=== PATIENT | male | born 1950 | race Caucasian/White ===

== ENCOUNTER 2020-07-11 23:25 | Inpatient (IN) | payer MEDICARE, MEDICAID ==
[2020-07-11 23:43] VITALS: BMI 27.8
[2020-07-12] MEDS ORDERED: Acetaminophen 325 MG TAB PO PRN (01:19)
--- NOTE | 2020-07-12 01:19 | PDOC.HHP ---
Hospitalist HPI Generalized swelling History of Present Illness: This is a 69-year-old male patient with a history of liver cirrhosis and hypertension who was transferred from [facility] on account of worsening generalized swelling for the past week. Patient notes that for the past week he has been noticing generalized swelling of his lower extremities and his abdomen. This has gradually worsened to the extent he has difficulty breathing, difficulty walking and painful swollen scrotum. He also notes intermittent wheezing shortness of breath and cough with scanty sputum production. He is a chronic smoker but however has not been formally diagnosed of COPD. He denies hemoptysis, fevers, dysuria or frequency. Also denies diarrhea constipation. He however notes having generalized bodily pains especially extending from his abdomen to his lower extremities. On presentation at [facility] vitals were BP 143/73, respiratory rate 16, pulse 98, temperature 99.3 and saturating at 98 on room air. His labs showed WBC of 7.1, hemoglobin 11.8, platelets 118. Also had sodium of 133, bicarb 20, creatinine 1.47 from a baseline of 1.75 about 7 months ago. AST was 99, ALT 24 and ALP 187. Ammonia level is 85. BNP slightly elevated to 10. He was started on Lasix and spironolactone however only received Lasix prior to arrival. Allergies/Adverse Reactions: Allergy/AdvReac Type Severity Reaction Status Date / Time No Known Drug Allergies Allergy Verified 07/12/20 01:01 Home Medications: Medication Instructions Recorded Confirmed Type Amlodipine Besylate [amLODIPine 10 mg PO DAILY 07/12/20 07/12/20 History Besylate] Past History: PMHx: Hypertension, liver cirrhosis PSHx: None FHx: None of significance Social: Lives alone, every day smoker. Previous alcohol use however stopped. No illicit drug use Hospitalist HPI ROS Constitutional: reports: weakness, malaise. denies: fever, chills, sweats Respiratory: reports: cough (Scanty sputum production, no hemoptysis), shortness of breath, SOB with excertion, wheezing Cardiovascular: reports: edema. denies: chest pain, palpitations, orthopnea, paroxysmal noc. dyspnea Gastrointestinal: reports: abdominal pain. denies: nausea, vomiting, diarrhea Genitourinary: denies: dysuria, frequency, incontinence Musculoskeletal: reports: leg pain, foot pain Neurological: denies: weakness, numbness, incoordination, change in speech All other systems reviewed; all pertinent +/- noted in HPI/Subj Hospitalist Exam Vitals: Vital Signs (12 hours) Temp Pulse Resp BP Pulse Ox 07/12/20 00:48 92 16 93 L 07/11/20 23:26 98.4 F 93 18 110/54 L 93 L Weight Weight 211 lb 8 oz General Appearance: awake alert, ill appearing General - other findings: In mild distress Eye: PERRL, anicteric sclera ENT: normocephalic atraumatic Heart: RRR, no murmur, no gallops, no rubs Respiratory - other findings: Bilateral generalized wheezing. Reduced air entry bilateral Gastrointestinal: soft, normal bowel sounds, no palpable masses, distended (Grossly) Extremities: no cyanosis, no clubbing, 2+ LE edema Neurological: cranial nerve grossly intact, no weakness, no focal deficits Psychiatric: normal affect, normal behavior, A&O x 3 Hospitalist H&P A/P Plan: This is a 69-year-old male patient with a history of liver cirrhosis and hypertension presenting transferred from [facility] on account of worsening edema and shortness of breath. This is concerning for decompensated liver cirrhosis and possible acute COPD exacerbation. Anasarca Secondary to alcoholic liver cirrhosis Started on Lasix and spironolactonewe will continue GI consult. Decompensated liver cirrhosis Ascitesparacentesis with CS cytology culture and albumin/protein Started on antibiotics although SBP not highly suspected however covered from antibiotics for COPD exacerbation Follow-up on labs Right upper quadrant ultrasound in a.m. GI consult in a.m. COPD exacerbation No formal diagnosis of COPD however patient wheezing and chronic smoker. DuoNebs as needed/scheduled Solu-Medrol Antibiotics on azithromycin/prednisone Atypical pneumonia Covered on azithromycin. Hypertension BP stable Resume home medications once verified. Tobacco abuse We will need counseling for sedation given possible COPD DVT prophylaxisLovenox CODE STATUSDNRthis was discussed with patient
[2020-07-12] MEDS: cefTRIAXone\\ROCEPHIN 1 GM in Sodium Chloride 0.9% 100 ML IVPB SCH (05:15)
[2020-07-12] MEDS: Azithromycin 500 MG in Sodium Chloride 0.9% 250 ML 250 ML IVPB SCH (05:39)
[2020-07-12 06:42] LABS: Anion Gap 9 mmol/L (10-20); BUN (Urea Nitrogen) 17 mg/dL (8.4-25.7); Calc. Creatinine Clearance 70 mL/min (70-130); Calcium 7.4 mg/dL (7.8-10.44); Carbon Dioxide 24 mmol/L (23-31); Chloride 105 mmol/L (98-107); Glucose 116 mg/dL (80-115); Potassium 3.4 mmol/L (3.5-5.1); Sodium 135 mmol/L (136-145)
[2020-07-12 06:45] LABS: #Basophils 0.1 thou/uL (0.0-0.2); #Monocytes 0.6 thou/uL (0.11-0.59); #Neutrophils 2.8 thou/uL (1.40-6.50); %Basophils 0.9 % (0.0-1.0); %Eosinophils 18.6 % (0.0-10.0); %Lymphocytes 18.3 % (21.0-51.0); %Monocytes 10.7 % (0.0-10.0); %Neutrophils 51.5 % (42.0-75.0); Hemoglobin 10.4 g/dL (14.0-18.0); Mean Corpuscular HGB CONC 35.9 g/dL (32.0-36.0); Mean Corpuscular Hemoglobin 36.7 pg (27.0-31.0); Mean Platelet Volume 6.9 fL (7.4-10.4); Platelet Count 101 thou/uL (130-400); RBC Distribution Width 14.7 % (11.5-14.5); Red Blood Cell (RBC) Count 2.84 mill/uL (4.70-6.10); White Blood Cell (WBC) Count 5.5 thou/uL (4.8-10.8)
[2020-07-12] MEDS ORDERED: Lidocaine 1% PF 5 ML VIAL ONE (07:37)
[2020-07-12] MEDS ORDERED: Sodium Bicarbonate 2.5 MEQ/5 ML VIAL ONE (07:37)
--- NOTE | 2020-07-12 07:41 | ULT ---
RIGHT UPPER QUADRANT ULTRASOUND: DATE: 07/12/2020 COMPARISON: None. HISTORY: Decompensated hepatic cirrhosis. TECHNIQUE: Multiplanar grayscale sonographic imaging of the right upper quadrant provided. FINDINGS: The pancreas appears grossly unremarkable, partially obscured by bowel gas. The label pinker demonstrates a 9 x 6 mm echogenic focus inseparable from the wall of the main portal vein. This is suspicious for an area of nonocclusive portal vein thrombosis. This could be optimally assessed with follow-up postcontrast CT or MRI. The hepatic parenchyma is heterogeneous and echogenic with a peripheral irregular hepatic contour con sistent with the provided history of cirrhosis. There is significant ascites adjacent to the liver. The right kidney measures 10.6 cm in craniocaudal dimension and demonstrates no stone, hydronephrosis , or mass lesion. The common bile duct is normal in caliber, measuring 4 mm. There is diffuse nonspecific wall thickening of the gallbladder with no gallstones seen. This is like ly on the basis of hepatocellular disease. There is small volume ascites within the left lower quadrant and there is significant ascites within the right lower quadrant. The spleen is enlarged sharad suring 15.5 cm. The label pinker reports a negative Walters's sign. IMPRESSION: 1. Cirrhotic configuration of the liver with significant ascites. Splenomegaly noted, combination of findings consistent with portal hypertension 2. Hypoechoic nodule within the region of the left portal vein suspicious for nonocclusive thrombus. 3. Gallbladder wall thickening, likely related to the patient's history of hepatocellular disease gi tanya lack of gallstones and a negative Walters's sign. Gallbladder wall is normal. Transcribed Date/Time: 07/12/2020 8:07 AM
--- NOTE | 2020-07-12 07:49 | RAD ---
Portable frontal chest radiograph: 07/12/2020 COMPARISON: 11/10/2019 HISTORY: Short of breath FINDINGS: There is interstitial opacity in the left lung with a perihilar/basilar predominance, not s ignificantly changed. There is increased density in the right hilar region with partial opacification of the right lung base suggesting combination of nonspecific pleural and parenchymal op acity. Blunting of the costophrenic angle on the right with pleural thickening extending to the right lung apex suggests a right pleural effusion, moderate in volume. The extension to the apex sugg est that this pleural effusion is possibly loculated or complex. This would be best assessed with follow-up chest CT. Rounded configuration of opacity within the right base is noted, which could sign brandon a degree of rounded atelectasis as seen on prior chest CT performed 03/13/2020. IMPRESSION: Nonspecific pleural and parenchymal opacity on the right as detailed above. Findings are similar when compared to junior assistant manager radiograph from chest CT performed 03/13/2020 and thus, pleural and parenchymal opacity on the right likely represents a combination of chronic complex pleural effusion and rounded atelectasis within the right base. Transcribed Date/Time: 07/12/2020 7:58 AM
[2020-07-12] MEDS ORDERED: Spironolactone 100 MG TAB PO SCH ×2 (08:00→12:15)
--- NOTE | 2020-07-12 08:27 | ULT ---
Sonographic guided paracentesis HISTORY: Symptomatic ascites. FINDINGS: After explaining the procedure and answering all questions, sonographic survey showed a mod erate amount of free fluid within the abdomen. Sterile technique, buffered local anesthesia, sonographic guidance, and a right lateral approach were used to carefully advance a 19-gauge Yueh needle and catheter into the free fluid. Catheter was left to drain a total volume of 2.7 L cloudy yellow liquid. Catheter was removed with minimal fluid r emaining. Patient tolerated procedure well and was returned in improved condition. IMPRESSION : Technically successful sonographic guided paracentesis 2.7 L.
[2020-07-12] MEDS ORDERED: Furosemide 40 MG/4 ML VIAL SLOW IVP SCH (09:00)
[2020-07-12] MEDS ORDERED: Enoxaparin Sodium 40 MG/0.4 ML SYRINGE SC SCH (09:00)
[2020-07-12] MEDS ORDERED: Furosemide 40 MG TAB PO SCH (09:00)
[2020-07-12 09:34] LABS: SARS-CoV-2 PCR by NAA Not Detected (NotDetected)
[2020-07-12] MEDS ORDERED: methylPREDNISolone Sod Succ/PF 125 MG/2 ML VIAL IVP SCH (09:45)
[2020-07-12] MEDS: methylPREDNISolone Sod Succ 40 MG VIAL IVP SCH ×2 (14:13→20:26)
--- NOTE | 2020-07-12 15:24 | CON ---
DATE OF CONSULTATION: 07/12/2020 HISTORY OF PRESENT ILLNESS: The patient is a 69-year-old male who was in his normal state of health until the last few days or weeks when he developed swelling of his lower extremities and scrotum, causing discomfort. At that point, he could not walk. He also complains of difficulty breathing. He reports he has been told he had cirrhosis several years ago. He was treated for hepatitis C in the past with pills. He is not sure of the treating physician. He said the pills took care of his hepatitis C. He has been on no diuretics in the past. He underwent a paracentesis here in the hospital. MEDICATIONS: Home medications include amlodipine 10 mg p.o. daily. Here in the hospital, he is on: 1. DuoNeb nebulized treatments. 2. Azithromycin 500 mg q.24 h. 3. Ceftriaxone 1 g q.24 h. 4. Lovenox 40 mg subcutaneous daily. 5. Lasix 40 mg IV daily. 6. Solu-Medrol 40 mg IV q.8 h. ALLERGIES: NO KNOWN ALLERGIES. SOCIAL HISTORY: He is an active smoker. He says he does not drink alcohol and has not for 40 years. FAMILY HISTORY: Negative for GI or liver disease. REVIEW OF SYSTEMS: Negative except for above. PHYSICAL EXAMINATION: VITAL SIGNS: Temperature 97.9, pulse 89, respiratory rate 20, blood pressure 121/69. HEENT: Poor dentition. NECK: Supple. CHEST: Bilateral wheezes. ABDOMEN: Protuberant, somewhat tense. No organomegaly or masses appreciable. He has caput medusa. GENITOURINARY: He has scrotal edema. EXTREMITIES: Bilateral lower extremity edema. LABORATORY DATA: White blood cell count 5.5, hemoglobin 10.4, hematocrit 29.0, and platelet counts 101. PT is 13.9 with an INR of 1.1. Chemistries show sodium of 133, CO2 of 20, creatinine 1.47, total bilirubin 3.7, AST of 99, alkaline phosphatase of 187, and albumin 2.5. Hepatitis A antibody from 2019 was positive and hepatitis C RNA is positive from 2019. Paracentesis performed earlier today with 2.7 L of cloudy yellow fluid removed. Abdominal ultrasound showed a cirrhotic configuration of the liver with significant ascites, splenomegaly noted. There is a hypoechoic nodule within the region of the left portal vein, suspicious for nonocclusive thrombus. Gallbladder wall thickening likely related to the patient's history of hepatocellular disease. No gallstones. ASSESSMENT: 1. Decompensated cirrhosis with ascites and scrotal and lower extremity edema; the exact etiology of his decompensation is unknown. He denies any alcohol intake. However, his AST is elevated with normal ALT, making slight alcoholic hepatitis suspicious. He has atypical pneumonia and also chronic obstructive pulmonary disease exacerbation. This could be contributing somewhat to his decompensation. He has a history of hepatitis C, which was treated in the past and this would explain his cirrhosis. 2. Nonocclusive portal vein thrombus. 3. Ascites. 4. Scrotal edema. 5. Lower extremity edema. 6. Chronic obstructive pulmonary disease exacerbation. 7. Atypical pneumonia. RECOMMENDATIONS: 1. Alpha fetoprotein. 2. Await fluid results. 3. May need a repeat paracentesis with more fluid if he remains symptomatic. 4. Add spironolactone to his regimen. 5. Treat pneumonia and COPD exacerbation. 6. We will follow with you. Job ID: [id number]
--- NOTE | 2020-07-12 17:53 | PDOC.HOSPP ---
- Subjective Subjective: Patient was seen examined at bedside. Patient just returned from paracentesis, had about 2.5 L removed. Patient still edematous, he also had audible wheezing on exam. He still short of breath. - Objective Vital Signs & Weight: Vital Signs (12 hours) Temp Pulse Resp BP BP Pulse Ox 07/12/20 16:39 98.0 F 88 16 118/69 95 07/12/20 12:00 98.2 F 95 20 138/77 95 07/12/20 08:00 97.9 F 89 20 121/69 96 07/12/20 06:14 88 93 L Weight Admit Weight 211 lb 8 oz Weight 211 lb 8 oz I&O: 07/11/20 07/12/20 07/13/20 06:59 06:59 06:59 Intake Total 240 Balance 240 Result Diagrams: 07/12/20 06:11 07/12/20 06:11 Radiology Reviewed by me: Yes EKG Reviewed by me: Yes Hospitalist ROS - Medication Medications: Active Medications Generic Name Dose Route Start Last Admin Trade Name Freq PRN Reason Stop Dose Admin Albuterol/Ipratropium 3 ml 07/12/20 13:00 07/12/20 13:47 Ipratropium/Albuterol Sulfate 3 Ml Neb NEB Not Given [id number] CLEMENCIA Furosemide 40 mg 07/12/20 09:00 07/12/20 08:31 Furosemide 40 Mg/4 Ml Vial SLOW IVP Not Given DAILY CLEMENCIA Azithromycin 500 mg/ Sodium 250 mls @ 250 mls/hr 07/12/20 05:00 07/12/20 05:39 Chloride IVPB 250 mls Q24HR CLEMENCIA Administration Ceftriaxone Sodium 1 gm/ 100 mls @ 200 mls/hr 07/12/20 05:00 07/12/20 05:15 Sodium Chloride IVPB 100 mls Q24HR CLEMENCIA Administration Methylprednisolone Sodium Succinate 40 mg 07/12/20 14:00 07/12/20 14:13 Methylprednisolone Sod Succ 40 Mg Vial IVP 40 mg Q8HR CLEMENCIA Administration Hospitalist Exam Vitals: Vital Signs (12 hours) Temp Pulse Resp BP BP Pulse Ox 07/12/20 16:39 98.0 F 88 16 118/69 95 07/12/20 12:00 98.2 F 95 20 138/77 95 07/12/20 08:00 97.9 F 89 20 121/69 96 07/12/20 06:14 88 93 L Weight Admit Weight 211 lb 8 oz Weight 211 lb 8 oz General Appearance: NAD Eye: PERRL ENT: normocephalic atraumatic Neck: supple Heart: RRR Respiratory: wheezes Gastrointestinal: soft Extremities: no cyanosis, 2+ LE edema Skin: normal turgor Neurological: cranial nerve grossly intact Musculoskeletal: normal tone Psychiatric: normal affect, normal behavior, A&O x 3 Hosp A/P (1) COPD exacerbation Code(s): J44.1 - CHRONIC OBSTRUCTIVE PULMONARY DISEASE W (ACUTE) EXACERBATION Status: Acute (2) Liver cirrhosis Code(s): K74.60 - UNSPECIFIED CIRRHOSIS OF LIVER Status: Acute (3) Hepatitis C Code(s): B19.20 - UNSPECIFIED VIRAL HEPATITIS C WITHOUT HEPATIC COMA Status: Acute (4) Hypertension Code(s): I10 - ESSENTIAL (PRIMARY) HYPERTENSION Status: Acute (5) Ascites Code(s): R18.8 - OTHER ASCITES Status: Acute (6) Portal vein thrombosis Code(s): I81 - PORTAL VEIN THROMBOSIS Status: Acute - Plan Patient is a 69 years old gentleman who has significant past medical history of hepatitis liver cirrhosis, COPD, hypertension, who was transferred from outside facility for worsening generalized swelling/edema. Patient was admitted for decompensated liver cirrhosis, and COPD exacerbation. Decompensated liver cirrhosis --Continue IV Lasix, spironolactone. Follow renal function --Status post paracentesis, 2.5 L removed on 07/12/20 --GI input appreciated Ascites/anasarca --Management as above. May need to rpt paracentesis COPD with exacerbation --Start IV steroid, scheduled breathing treatments, mucolytics. Continue empiric antibiotic with Rocephin/azithromycin for possible pneumonia Portal vein thrombosis, nonocclusive --We will change his Lovenox to therapeutic dose Hypertension, stable --Blood pressure stable, on the low side. We will continue with IV diuretic, spironolactone antibiotic. Hold off on resuming his Norvasc for now Tobacco dependent disorder --Counseled DVT prophylaxisLovenox CODE STATUSDNRthis was discussed with patient
[2020-07-12] MEDS: Enoxaparin Sodium 100 MG/ML SYRINGE SC SCH (20:24)
[2020-07-12] MEDS: guaiFENesin/DM ER PO SCH (20:26)
[2020-07-12] MEDS ORDERED: FLU VACC QS2020-21(65YR UP)/PF 240 MCG/0.7 ML SYRINGE IM ONE (21:00)
[2020-07-13] MEDS: cefTRIAXone\\ROCEPHIN 1 GM in Sodium Chloride 0.9% 100 ML IVPB SCH (04:12)
[2020-07-13] MEDS: methylPREDNISolone Sod Succ 40 MG VIAL IVP SCH ×2 (05:16→13:51)
[2020-07-13] MEDS: Azithromycin 500 MG in Sodium Chloride 0.9% 250 ML 250 ML IVPB SCH (05:17)
[2020-07-13 05:37] LABS: #Lymphocytes 0.6 thou/uL (1.20-3.40); #Monocytes 0.3 thou/uL (0.11-0.59); %Basophils 0.1 % (0.0-1.0); %Eosinophils 0.3 % (0.0-10.0); %Lymphocytes 6.2 % (21.0-51.0); %Neutrophils 90.4 % (42.0-75.0); Hemoglobin 10.3 g/dL (14.0-18.0); Mean Corpuscular HGB CONC 35.5 g/dL (32.0-36.0); Mean Corpuscular Hemoglobin 36.1 pg (27.0-31.0); Mean Platelet Volume 7.4 fL (7.4-10.4); Platelet Count 98 thou/uL (130-400); RBC Distribution Width 14.4 % (11.5-14.5); Red Blood Cell (RBC) Count 2.85 mill/uL (4.70-6.10); White Blood Cell (WBC) Count 8.9 thou/uL (4.8-10.8)
[2020-07-13 05:57] LABS: ALT (SGPT) 21 U/L (8-55); AST (SGOT) 77 U/L (5-34); Albumin 2.2 g/dL (3.4-4.8); Alkaline Phosphatase 171 U/L (40-110); Anion Gap 11 mmol/L (10-20); BUN (Urea Nitrogen) 20 mg/dL (8.4-25.7); Bilirubin, Total 2.5 mg/dL (0.2-1.2); CRP (Inflammatory) 2.49 mg/dL (= or < 0.5); Calc. Creatinine Clearance 65 mL/min (70-130); Calcium 7.7 mg/dL (7.8-10.44); Carbon Dioxide 24 mmol/L (23-31); Chloride 102 mmol/L (98-107); Glucose 289 mg/dL (80-115); Magnesium 1.7 mg/dL (1.6-2.6); Potassium 3.6 mmol/L (3.5-5.1); Protein, Total 7.2 g/dL (5.8-8.1); Sodium 133 mmol/L (136-145)
[2020-07-13] MEDS: Enoxaparin Sodium 100 MG/ML SYRINGE SC SCH ×2 (08:11→21:41)
[2020-07-13] MEDS: guaiFENesin/DM ER PO SCH ×2 (08:11→21:41)
--- NOTE | 2020-07-13 09:54 | RAD ---
PA AND LATERAL VIEWS CHEST: Date: 07/13/2020 HISTORY: Follow-up pneumonia and pleural effusion. COMPARISON: Previous day. FINDINGS/IMPRESSION: The heart size is normal. Right-sided pleural parenchymal changes are again seen. No pneumothoraces a re identified on either side. The left lung is clear. POS: MZA
[2020-07-13] MEDS ORDERED: Iopamidol-370 76% 500 ML 1 ML ONE (10:32)
--- NOTE | 2020-07-13 11:06 | CT ---
CT OF THE ABDOMEN AND PELVIS WITH IV CONTRAST INDICATION: History of cirrhosis with elevated alpha-fetoprotein COMPARISON: CT the chest without contrast dated March 13, 2020 and a right upper quadrant ultrasound dated July 12, 2020 FINDINGS: ABDOMEN: Lung bases: There is a loculated right-sided pleural effusion with rounded atelectasis of the right l ower lobe which is stable to the comparison chest CT. Liver: There is cirrhotic morphology of the liver. There is an 8.5 cm irregular hypodense mass within segment 5 of the right hepatic lobe suspicious for underlying malignancy. The mass lesion is displacing the anterior division of the right portal vein laterally. There are focal filling defects within the distal right main portal vein extending into the anterior division of the right portal vein. There is also a partial occlusive intraluminal thrombus within the distal left main portal vein on image 21 of series 2. There are enlarged lymph nodes within the periportal and portacaval region. When the largest in the periportal region measures 1.3 cm on image 27 of series 2. There is r ecanalization of the umbilical vein. Gallbladder: Mild collateral wall thickening likely related to patient's cirrhosis. Pancreas: Normal. Adrenal glands: Normal. Spleen: Enlarged measuring 17.1 cm. Kidneys and ureters: There are bilateral renal cysts. The largest is seen exophytically off the super ior pole of the left kidney measuring 1.8 cm. There is prominence of the mid left ureter that extends to the level of the left renal pelvis without bhavin left-sided hydronephrosis. The right dong l collecting system is of normal caliber. Vasculature: There are moderate vascular calcifications seen involving the visualized vasculature. Lymph nodes:Enlarged lymph nodes in the periportal and portacaval regions. Free fluid in abdomen:There is [id number] scattered ascites. PELVIS: Small and large bowel: There is colonic diverticulosis. The small bowel is of normal caliber. The vis ualized stomach appears within normal limits. Appendix:The appendix projects into a right inguinal hernia within the right inguinal canal with exte nsive amount of fluid within the right inguinal hernia sac that protrudes into the superior aspect of the right scrotum. Bladder: Normal. Rectal and perirectal soft tissues:Normal. Reproductive structures: Normal. Free fluid in pelvis: There is [id number] free fluid in the pelvis. There is fluid extending in to a right inguinal hernia Lymphadenopathy pelvis: No lymphadenopathy is evident. Osseous structures: No acute osseous abnormality. No destructive osteolytic or osteoblastic lesion i s identified. There is scattered degenerative and osteoarthritic changes. Soft tissues:Mild anasarca IMPRESSION: 1. Cirrhosis with findings of portal hypertension. 2. Irregular hypodense mass within segment 5 of the right hepatic lobe suspicious for underlying hepa tic malignancy. Follow-up CT or MRI utilizing a liver mass protocol is recommended for additional characterization. 3. Partially occlusive intraluminal thrombi seen within the right and left main portal veins. 4. Uoeb-mr-[id number] ascites. There is a large right inguinal hernia containing fluid and the appendix . 5. Persistent small complicated right-sided pleural effusion with right lower lobe rounded atelectasi s. 6. Nonspecific mild dilatation of the mid left ureter may related to a nonobstructing stricture at th e level of the mid to distal left ureter. No bhavin left-sided hydronephrosis is evident. Bilateral renal cysts.
[2020-07-13] MEDS ORDERED: Furosemide 40 MG/4 ML VIAL SLOW IVP SCH (12:45)
[2020-07-13] MEDS: Furosemide 40 MG/4 ML VIAL SLOW IVP SCH (13:50)
--- NOTE | 2020-07-13 14:52 | PRG ---
DATE OF SERVICE: 07/13/2020 SUBJECTIVE: The patient is feeling the same as far as his abdominal distention and scrotal edema and lower extremity edema. However, he discusses wanting to go to the [facility]. I did discuss with him he has alpha fetoprotein and CT results indicating probable hepatoma. OBJECTIVE: VITAL SIGNS: Temperature 97.7, pulse 96, respiratory rate 16, blood pressure 133/71. CHEST: Show bilateral wheezes. CARDIOVASCULAR: Regular rate and rhythm. ABDOMEN: Distended, tympanitic with a positive fluid wave. : Shows scrotal edema. EXTREMITIES: Show bilateral edema. LABORATORY DATA: Shows sodium 133, creatinine 1.50, total bilirubin 2.5, AST 77. Alpha fetoprotein is 77,885. IMAGING STUDIES: CT abdomen and pelvis shows liver to be cirrhotic. There is 8.5 cm irregular hypodense mass within segment 5 in the right hepatic lobe suspicious for underlying malignancy. The mass lesion of the right portal vein laterally. There were focal filling defects within the distal right main portal vein extending into the anterior division of the right portal vein. There is also partial occlusive intraluminal thrombus within the distal main portal vein and enlarged lymph nodes within the periportal and portacaval region. ASSESSMENT: 1. 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 2. Ascites. 3. Scrotal edema. 4. Chronic obstructive pulmonary disease. 5. Renal insufficiency. RECOMMENDATIONS: 1. We will consider holding diuretics as the patient has developed some renal insufficiency and treat his ascites with paracentesis p.r.n. 2. Oncology opinion. 3. This is unlikely to be resected. He is not a candidate for liver transplantation. Local treatments such as radiofrequency ablation and typically not considered tumors over 6 cm in size. Whenever treatment is decided, he will need to be undertaken in a tertiary center. Job ID: [id number]
--- NOTE | 2020-07-13 15:26 | PDOC.HOSPP ---
- Subjective Encounter Date: 07/13/20 Encounter Time: 12:10 Subjective: Patient seen this morning. He is quite decompensated. Going mild respiratory distress. Abdomen is distended. Patient lives alone. His CT report pending. Related report reviewed; discussed with Dr. Garza; also discussed with the rock dust sprayer this morning. - Objective Vital Signs & Weight: Vital Signs (12 hours) Temp Pulse Resp BP Pulse Ox 07/13/20 09:12 96 07/13/20 08:02 96 16 96 07/13/20 07:35 97.7 F 89 20 133/71 96 07/13/20 05:37 97.5 F L 94 20 123/75 96 Weight Admit Weight 211 lb 8 oz Weight 211 lb 8 oz I&O: 07/12/20 07/13/20 07/14/20 06:59 06:59 06:59 Intake Total 2030 Output Total 1700 Balance 330 Result Diagrams: 07/13/20 04:49 07/13/20 04:49 Hospitalist ROS - Medication Medications: Active Medications Generic Name Dose Route Start Last Admin Trade Name Freq PRN Reason Stop Dose Admin Albuterol/Ipratropium 3 ml 07/12/20 13:00 07/13/20 13:55 Ipratropium/Albuterol Sulfate 3 Ml Neb NEB Not Given [id number] CLEMENCIA Enoxaparin Sodium 100 mg 07/12/20 21:00 07/13/20 08:11 Enoxaparin Sodium 100 Mg/Ml Syringe SC 100 mg 0900,2100 CLEMENCIA Administration Furosemide 40 mg 07/13/20 14:00 07/13/20 13:50 Furosemide 40 Mg/4 Ml Vial SLOW IVP 40 mg 0600,1400 CLEMENCIA Administration Guaifenesin/Dextromethorphan 1 tab 07/12/20 21:00 07/13/20 08:11 Guaifenesin/Dm Er PO 1 tab Q12HR CLEMENCIA Administration Azithromycin 500 mg/ Sodium 250 mls @ 250 mls/hr 07/12/20 05:00 07/13/20 05:17 Chloride IVPB 250 mls Q24HR CLEMENCIA Administration Ceftriaxone Sodium 1 gm/ 100 mls @ 200 mls/hr 07/12/20 05:00 07/13/20 04:12 Sodium Chloride IVPB 100 mls Q24HR CLEMENCIA Administration Methylprednisolone Sodium Succinate 40 mg 07/12/20 14:00 07/13/20 13:51 Methylprednisolone Sod Succ 40 Mg Vial IVP 40 mg Q8HR CLEMENCIA Administration Sodium Chloride 10 ml 07/12/20 21:00 07/13/20 08:13 Flush - Normal Saline 10 Ml Syringe IVF 10 ml Q12HR CLEMENCIA Administration Hospitalist Exam Vitals: Vital Signs (12 hours) Temp Pulse Resp BP Pulse Ox 07/13/20 09:12 96 07/13/20 08:02 96 16 96 07/13/20 07:35 97.7 F 89 20 133/71 96 07/13/20 05:37 97.5 F L 94 20 123/75 96 Weight Admit Weight 211 lb 8 oz Weight 211 lb 8 oz General Appearance: ill appearing Eye: PERRL ENT: normocephalic atraumatic Neck: supple Heart: RRR, normal peripheral pulses Respiratory: CTAB, normal chest expansion Gastrointestinal: soft, normal bowel sounds Neurological: cranial nerve grossly intact, no focal deficits Psychiatric: A&O x 3 Hosp A/P - Plan Patient is a 69 years old gentleman who has significant past medical history of hepatitis C liver cirrhosis, COPD, hypertension, who was transferred from outside facility for worsening generalized swelling/edema. Patient was admitted for decompensated liver cirrhosis, and COPD exacerbation. Decompensation multifactorial with the cirrhosis ascites anasarca and hepatocellular cancer New diagnosis of hepatoma -CT showed 8.5 cm hypodense mass in the right hepatic lobe -Partial intraluminal thrombus in the left main portal vein\-lymphadenopathy\gallbladder wall thickening possibly related to cirrhosis Portal hypertension COPD exacerbation Code(s): J44.1 - CHRONIC OBSTRUCTIVE PULMONARY DISEASE W (ACUTE) EXACERBATION Status: Acute (2) Liver cirrhosis (3) Hepatitis C (4) Hypertension (5) Ascites (6) Portal vein thrombosis - Plan Decompensated liver cirrhosis --Continue IV Lasix, spironolactone. Follow renal function --Status post paracentesis, 2.5 L removed on 07/12/20 Ascites/anasarca --Management as above. May need to rpt paracentesis --Possibly Wednesday COPD with exacerbation --scheduled breathing treatments, mucolytics. Continue empiric antibiotic with Rocephin/azithromycin for possible pneumonia Portal vein thrombosis, nonocclusive --We will change his Lovenox to therapeutic dose Hypertension, stable --Blood pressure stable, on the low side. We will continue with IV diuretic, spironolactone antibiotic. Hold off on resuming his Norvasc for now Tobacco dependent disorder --Counseled DVT prophylaxisLovenox CODE STATUSDNRthis was discussed with patient --CT report with the new diagnosis of hepatoma I discussed with Dr. Garza I will place a consult for oncology opinion It appears that if he continued to proceed with the treatment, he may have to go to a tertiary center for surgical resection of the hepatoma With the several decompensated conditions, he may not be strong candidate for liver transplantation Will continue to discuss with the patient
--- NOTE | 2020-07-13 20:02 | CON ---
DATE OF CONSULTATION: CONSULTING PHYSICIAN: Amos Lanier MD REQUESTING PHYSICIAN: Gurvinder Hicks MD REASON FOR CONSULTATION: Potential hepatorenal syndrome and possible incipient contrast nephropathy. IMPRESSION: 1. Acute kidney injury, which has the propensity to get worse given the contrast exposure today. 2. Possible hepatorenal syndrome in the context of recently diagnosed possible liver carcinoma. 3. Severe hypervolemia/anasarca in the context of liver disorder. The patient is in significant respiratory distress. PLAN: 1. Aggressive diuresis. 2. Monitor the renal function, especially with the recent exposure of contrast with the possibility of contrast nephropathy within the next 48 hours. 3. If the patient does not respond well to medical diuresis as he remains significantly distressed, I have already informed this patient of the possibility of undergoing ultrafiltration treatment, which is a kind of modified dialysis treatment. 4. Further management to be dependent on the clinical course. HISTORY OF PRESENT ILLNESS: A 69-year-old gentleman who presented with generalized swelling with a history of liver cirrhosis, hypertension, and now with about 8.5 cm hepatic tumor, which from all indication is highly suspicious for malignancy. The patient did undergo therapeutic paracentesis that could only remove about 2.7 L of ascitic fluid. The patient overall is edematous with about 3 to 4+ lower extremity edema and significantly distended abdomen, limiting the ability of this patient to eat very well. As a result of this, the patient has been taken to involve Renal in the management of this case. The patient did undergo a CT scan with contrast today. PAST MEDICAL HISTORY: Significant for liver cirrhosis, hypertension. MEDICATIONS: Reviewed and documented on [facility]. FAMILY HISTORY: Not significantly related to present illness. REVIEW OF SYSTEMS: As documented in the body of history. All other systems were reviewed and found not to be significantly related to present illness. PHYSICAL EXAMINATION: GENERAL: The patient is found to be in significant physical and respiratory distress. VITAL SIGNS: Noted with the following vital signs; afebrile, temperature 97.5, pulse 94, respiratory rate of 20, O2 saturation of 96% with blood pressure of 123/75. HEENT: Unremarkable. CARDIOVASCULAR SYSTEM: First and second heart sounds were heard. RESPIRATORY SYSTEM: Clear to auscultation anteriorly. DIGESTIVE SYSTEM: Revealed a severely distended abdomen. EXTREMITIES: Showed 3 to 4+ bilateral lower extremity edema. SKIN: No new gross rash. LYMPHATICS: No peripheral lymphadenopathy. SUMMARY: A 69-year-old gentleman with liver cirrhosis who now presented here with anasarca and significant respiratory distress in the context of gross ascites. Thank you for this consultation. We will follow with you. Job ID: [id number]
[2020-07-14] MEDS: cefTRIAXone\\ROCEPHIN 1 GM in Sodium Chloride 0.9% 100 ML IVPB SCH (05:12)
[2020-07-14] MEDS: Furosemide 40 MG/4 ML VIAL SLOW IVP SCH (05:13)
[2020-07-14] MEDS: Azithromycin 500 MG in Sodium Chloride 0.9% 250 ML 250 ML IVPB SCH (05:50)
[2020-07-14 06:58] LABS: INR-International Normal Ratio 1.6; Prothrombin Time 19.5 sec (12.0-14.7)
[2020-07-14] MEDS: Enoxaparin Sodium 100 MG/ML SYRINGE SC SCH (07:57)
[2020-07-14] MEDS: guaiFENesin/DM ER PO SCH ×2 (09:06→21:37)
[2020-07-14] MEDS ORDERED: Albumin 25% 25 GM/100 ML BOT IVPB SCH (09:30)
--- NOTE | 2020-07-14 09:45 | PRG ---
DATE OF SERVICE: 07/14/2020 SUBJECTIVE: The patient is feeling well. He is wanting to go to the detention. He is eating well. He is having bowel movements without blood. He is having no nausea or vomiting. He states his breathing has improved. His scrotal discomfort is unchanged. OBJECTIVE: VITAL SIGNS: Temperature 97.9, pulse 89, respiratory rate 18, and blood pressure 118/73. CHEST: Shows bilateral wheezes. CARDIOVASCULAR: Regular rate and rhythm. ABDOMEN: Distended, tense with shifting dullness. EXTREMITIES: Show bilateral pitting edema. : Scrotum shows some redness and erythema. LABORATORY DATA: Shows a PT of 19.5 with an INR of 1.6. No chemistries were performed today, but these were ordered stat. ASSESSMENT: 1. Decompensated cirrhosis with ascites, anasarca. 2. Ascites and anasarca, his ascites seems to be transient affecting his respiratory status. We are going to start treating him for renal given his renal insufficiency, which includes albumin. He will get albumin for the next 4 days. This should improve the safety of paracentesis, not more than 5 L should be removed during his paracentesis. 3. Chronic obstructive pulmonary disease exacerbation, improved according to the patient, but still wheezing. 4. Hepatocellular carcinoma, the patient has an alpha-fetoprotein of 77,000 with a large mass noted on his CT. This mass size precludes any localized treatment and he is not a liver transplant candidate. 5. Portal vein thrombosis versus tumor involvement, the patient was started on full-dose Lovenox. We showed rule out varices prior to beginning full-dose anticoagulation. However, he has eaten today, so we will set him up for tomorrow or the following day once paracentesis has improved his respiratory status. 6. Renal insufficiency, unclear whether this is hepatorenal or secondary to prerenal factors. 7. History of hepatitis C. RECOMMENDATIONS: 1. Begin midodrine 10 mg t.i.d. 2. Begin octreotide subcu 200 mcg t.i.d. 3. Albumin infusion at 1 g/kg and then daily for at least 4 days. 4. Paracentesis not to exceed 5 L either today or tomorrow. 5. EGD to rule out varices since the patient is placed on full anticoagulation. We will plan that for tomorrow, but really should wait until he gets the paracentesis to improve his respiratory status. Job ID: [id number]
--- NOTE | 2020-07-14 09:50 | CON ---
DATE OF CONSULTATION: 07/14/2020 HISTORY OF PRESENT ILLNESS: Mr. Blount is a 69-year-old male with a history of at least 10 years of cirrhosis secondary to alcoholism. He states he quit drinking 4 years ago, but was admitted 2 days ago with complaints of worsening generalized swelling in his legs as well as his abdomen over the last week to 10 days. He presented to an outside emergency room and was found to have increasing ascites as well as uncompensated cirrhosis. He was transferred here for further workup. CT scan on admission here showed a mass in the liver measuring 8.5 cm as well as an AFP greater than 77,000. We are consulted because of this. The patient does also complain of some wheezing. He states he does have significant pain in his scrotum secondary to swelling. He says that there is breakdown on the skin of the scrotum which bleeds and weeps at times. He denies any fevers or chills. He denies any change in his appetite, although I suspect he is fairly malnourished. He lives alone and has no support. He does insist that he has stopped drinking. PAST MEDICAL HISTORY: 1. Alcoholic cirrhosis. 2. COPD. 3. Hypertension. CURRENT MEDICATIONS: 1. Tylenol p.r.n. 2. Albumin 50 g IV x1. 3. DuoNeb q.4 hours p.r.n., which he has not yet had one. 4. Azithromycin 500 mg IV daily. 5. Ceftriaxone 1 g IV daily. 6. Lovenox 100 mg subcu q.12 hours. 7. Mucinex p.r.n. 8. Midodrine 10 mg p.o. t.i.d. 9. Sandostatin 200 mcg q.8 hours. ALLERGIES: NO KNOWN DRUG ALLERGIES. SOCIAL HISTORY: He lives in [place] and does admit to extensive alcohol use, but quit 4 years ago. He continues to smoke. He has no caregivers and no one lives with him. He has adult children, but they are not living close by. FAMILY HISTORY: Noncontributory. REVIEW OF SYSTEMS: Otherwise 10-point review of systems is negative. Please see the history of present illness. PHYSICAL EXAMINATION: VITAL SIGNS: Temperature 97.9, pulse 89, respirations 18, O2 saturation 94% on room air, blood pressure 118/73. GENERAL: He is disheveled, but in no acute distress. HEENT: Extraocular muscles are intact. Pupils are equal, round, and reactive to light. Sclerae are anicteric. NECK: Supple without lymphadenopathy. CARDIOVASCULAR: Regular rhythm. LUNGS: Clear to auscultation. ABDOMEN: Significant distention. Hypoactive bowel sounds. Obvious dullness in the flanks with no rebounding or guarding. No organomegaly is palpable because of the ascites. EXTREMITIES: 2+ pitting edema bilaterally. : His scrotum has an area of erythema and is quite edematous, there is skin breakdown with some weeping and scab formation, no obvious infection. LABORATORY DATA: White blood cell count 8.9, hemoglobin 10.3, platelets 98. INR 1.6. Sodium 133, potassium 3.6, chloride 102, CO2 of 24, BUN 20, creatinine 1.5, glucose 289, calcium 7.7, total bilirubin 2.5, AST 77, ALT 21, alkaline phosphatase 171. C-reactive protein 2.4. BNP 737. Albumin 2.2. Tumor marker AFP 77,885. CT scan of the abdomen and pelvis done on this admission shows significant ascites as well as an 8.5 cm mass in the right hepatic lobe. There is a partially occlusive intraluminal thrombus seen in the right and left main portal veins with [id number] ascites and a large right inguinal hernia containing fluid in the appendix. He has a small right pleural effusion and some right lower lobe atelectasis. ASSESSMENT: Mr. Blount is a 69-year-old male with, 1. Hepatocellular carcinoma, diagnosed based on history of cirrhosis and elevated alpha fetoprotein as well as mass in the liver. 2. Uncompensated cirrhosis. 3. Anasarca. 4. Scrotal edema with skin breakdown. 5. Chronic obstructive pulmonary disease with history of tobacco use and wheezing. PLAN: 1. He is already on azithromycin and DuoNeb, but the DuoNeb need to be increased and he needs to be accepting of them, we have discussed this with the nurse. 2. Wound care consult for the scrotal breakdown. 3. We discussed the diagnosis. Obviously, his prognosis is centered more around his uncompensated cirrhosis. I have discussed with him that his cirrhosis will need to be treated first. If we can get the anasarca and other issues under control, he might have some treatment options. However, if his cirrhosis cannot be controlled, I think his treatment options are limited. 4. Palliative care consult to discuss goals of care as well as symptomatic management, he may need to go home with hospice if we think that he is not a candidate for treatment. 5. We will continue to follow with you. Job ID: [id number]
[2020-07-14 09:52] LABS: ALT (SGPT) 21 U/L (8-55); AST (SGOT) 68 U/L (5-34); Albumin 2.3 g/dL (3.4-4.8); Alkaline Phosphatase 141 U/L (40-110); Anion Gap 10 mmol/L (10-20); BUN (Urea Nitrogen) 23 mg/dL (8.4-25.7); Bilirubin, Total 1.8 mg/dL (0.2-1.2); Calc. Creatinine Clearance 70 mL/min (70-130); Calcium 7.9 mg/dL (7.8-10.44); Carbon Dioxide 28 mmol/L (23-31); Chloride 99 mmol/L (98-107); Glucose 179 mg/dL (80-115); Potassium 3.8 mmol/L (3.5-5.1); Protein, Total 7.3 g/dL (5.8-8.1); Sodium 133 mmol/L (136-145)
--- NOTE | 2020-07-14 13:35 | ULT ---
LIMITED ABDOMINAL ULTRASOUND: Date: 07/14/2020 HISTORY: Chest for ascites. FINDINGS/IMPRESSION: A mild amount of ascites is seen. POS: OFF
[2020-07-14] MEDS: Midodrine HCl 5 MG TAB PO SCH ×2 (14:14→21:37)
[2020-07-14] MEDS: Octreotide Acetate 100 MCG/ML VIAL SC SCH ×2 (14:28→21:38)
--- NOTE | 2020-07-14 15:05 | PDOC.HOSPP ---
- Subjective Encounter Date: 07/14/20 Encounter Time: 12:10 Subjective: Patient seen this morning discussed with the GI as well as clinical business manager. His lower extremity edema improved and his legs are almost back to normal size. - Objective Vital Signs & Weight: Vital Signs (12 hours) Temp Pulse Resp BP Pulse Ox 07/14/20 13:25 89 18 94 L 07/14/20 09:00 97.9 F 89 18 118/73 94 L 07/14/20 08:25 96 Weight Admit Weight 211 lb 8 oz Weight 211 lb 8 oz I&O: 07/13/20 07/14/20 07/15/20 06:59 06:59 06:59 Intake Total 2030 1200 Output Total 1700 1000 Balance 330 200 Result Diagrams: 07/13/20 04:49 07/14/20 09:24 Hospitalist ROS - Medication Medications: Active Medications Generic Name Dose Route Start Last Admin Trade Name Freq PRN Reason Stop Dose Admin Albuterol/Ipratropium 3 ml 07/12/20 13:00 07/14/20 13:25 Ipratropium/Albuterol Sulfate 3 Ml Neb NEB 3 ml [id number] CLEMENCIA Administration Guaifenesin/Dextromethorphan 1 tab 07/12/20 21:00 07/14/20 09:06 Guaifenesin/Dm Er PO 1 tab Q12HR CLEMENCIA Administration Azithromycin 500 mg/ Sodium 250 mls @ 250 mls/hr 07/12/20 05:00 07/14/20 05:50 Chloride IVPB 250 mls Q24HR CLEMENCIA Administration Ceftriaxone Sodium 1 gm/ 100 mls @ 200 mls/hr 07/12/20 05:00 07/14/20 05:12 Sodium Chloride IVPB 100 mls Q24HR CLEMENCIA Administration Midodrine 10 mg 07/14/20 15:00 07/14/20 14:14 Midodrine Hcl 5 Mg Tab PO 10 mg TID CLEMENCIA Administration Octreotide Acetate 200 mcg 07/14/20 14:00 07/14/20 14:28 Octreotide Acetate 100 Mcg/Ml Vial SC 200 mcg Q8HR CLEMENCIA Administration Sodium Chloride 10 ml 07/12/20 21:00 07/14/20 08:00 Flush - Normal Saline 10 Ml Syringe IVF 10 ml Q12HR CLEMENCIA Administration Hospitalist Exam Vitals: Vital Signs (12 hours) Temp Pulse Resp BP Pulse Ox 07/14/20 13:25 89 18 94 L 07/14/20 09:00 97.9 F 89 18 118/73 94 L 07/14/20 08:25 96 Weight Admit Weight 211 lb 8 oz Weight 211 lb 8 oz General Appearance: NAD, awake alert Eye: PERRL ENT: normocephalic atraumatic Neck: supple Heart: RRR Respiratory: CTAB Gastrointestinal: soft, normal bowel sounds Extremities: 1+ LE edema Extremities - other findings: Scrotal and ankle swelling much more prominent Neurological: cranial nerve grossly intact, no focal deficits Psychiatric: normal affect, normal behavior, A&O x 3 Hosp A/P - Plan Patient is a 69 years old gentleman who has significant past medical history of hepatitis C liver cirrhosis, COPD, hypertension, who was transferred from outside facility for worsening generalized swelling/edema. Patient was admitted for decompensated liver cirrhosis, and COPD exacerbation. Decompensation multifactorial with the cirrhosis ascites anasarca and hepatoce llular cancer New diagnosis of hepatoma -CT showed 8.5 cm hypodense mass in the right hepatic lobe -Partial intraluminal thrombus in the left main portal vein\- lymphadenopathy\gallbladder wall thickening possibly related to cirrhosis Portal hypertension COPD exacerbation Code(s): J44.1 - CHRONIC OBSTRUCTIVE PULMONARY DISEASE W (ACUTE) EXACERBATION Status: Acute (2) Liver cirrhosis (3) Hepatitis C (4) Hypertension (5) Ascites (6) Portal vein thrombosis - Plan Decompensated liver cirrhosis --Continue IV Lasix, spironolactone. Follow renal function --Status post paracentesis, 2.5 L removed on 07/12/20 Ascites/anasarca --Management as above. May need to rpt paracentesis --Possibly Wednesday COPD with exacerbation --scheduled breathing treatments, mucolytics. Continue empiric antibiotic with Rocephin/azithromycin for possible pneumonia Portal vein thrombosis, nonocclusive --We will change his Lovenox to therapeutic dose Hypertension, stable --Blood pressure stable, on the low side. We will continue with IV diuretic, spironolactone antibiotic. Hold off on resuming his Norvasc for now Tobacco dependent disorder --Counseled DVT prophylaxisLovenox CODE STATUSDNRthis was discussed with patient --CT report with the new diagnosis of hepatoma I discussed with Dr. Garza I will place a consult for oncology opinion It appears that if he continued to proceed with the treatment, he may have to go to a tertiary center for surgical resection of the hepatoma With the several decompensated conditions, he may not be strong candidate for liver transplantation Will continue to discuss with the patient 7th Uncompensated cirrhosis He is started on midodrine as well as octreotide Albumin infusion for 5 days No paracentesis today Medical diuresis Low-dose spironolactone and lactulose as needed Wound care consult for scrotal breakdown
[2020-07-14] MEDS ORDERED: Furosemide 40 MG/4 ML VIAL SLOW IVP SCH (16:45)
--- NOTE | 2020-07-14 16:46 | PRG ---
DATE OF SERVICE: 07/14/2020 SUBJECTIVE: The patient was seen and examined, seems more comfortable today as opposed to yesterday with the following vital signs. OBJECTIVE: VITAL SIGNS: Afebrile, temperature 97.9, pulse 89, respiratory rate of 18, O2 saturations of 94%, blood pressure 118/73. HEENT: Unremarkable. CARDIOVASCULAR SYSTEM: First and second heart sounds were heard. RESPIRATORY SYSTEM: Clear to auscultation. DIGESTIVE SYSTEM: Revealed a distended abdomen. EXTREMITIES: Show peripheral edema. SKIN: No new gross rash. LYMPHATICS: No peripheral lymphadenopathy. Scrotal edema noted. IMPRESSION: 1. End-stage liver disease. 2. Possible recent diagnosis of hepatoma. 3. Hypervolemia/anasarca. 4. Acute kidney injury, possible mild hepatorenal syndrome. PLAN: 1. Increase the dose of Aldactone to 25 mg daily. 2. P.r.n. diuresis. 3. Renal supportive measures. 4. Further management to be dependent on the clinical course. Job ID: [id number]
[2020-07-14] MEDS ORDERED: Nystatin Powder 15 GM BOT TOP SCH (21:00)
[2020-07-14] MEDS: Calamine/Zinc Oxide 177 ML LOTION TP SCH (21:38)
[2020-07-14] MEDS: Nystatin Powder 15 GM BOT TOP SCH (21:39)
[2020-07-15] MEDS: cefTRIAXone\\ROCEPHIN 1 GM in Sodium Chloride 0.9% 100 ML IVPB SCH (04:13)
[2020-07-15] MEDS: Azithromycin 500 MG in Sodium Chloride 0.9% 250 ML 250 ML IVPB SCH (05:43)
[2020-07-15] MEDS: Octreotide Acetate 100 MCG/ML VIAL SC SCH ×3 (05:43→21:45)
[2020-07-15] MEDS ORDERED: Albumin 25% 25 GM/100 ML BOT IVPB SCH (09:00)
[2020-07-15] MEDS ORDERED: Spironolactone 25 MG TAB PO SCH (09:00)
[2020-07-15] MEDS: Midodrine HCl 5 MG TAB PO SCH ×3 (09:57→20:50)
[2020-07-15] MEDS: Calamine/Zinc Oxide 177 ML LOTION TP SCH ×2 (09:58→20:50)
[2020-07-15] MEDS: Spironolactone 25 MG TAB PO SCH (09:58)
[2020-07-15] MEDS: guaiFENesin/DM ER PO SCH ×2 (09:59→20:50)
[2020-07-15] MEDS: Nystatin Powder 15 GM BOT TOP SCH ×2 (09:59→20:50)
--- NOTE | 2020-07-15 10:09 | PRG ---
DATE OF SERVICE: 07/15/2020 SUBJECTIVE: Mr. Blount is not having any abdominal pain, shortness of breath, or nausea. He tolerated his breakfast today. He is depressed regarding his new diagnosis. No other acute events. On ultrasound imaging, he was not felt to have enough ascites to perform paracentesis. OBJECTIVE: VITAL SIGNS: Temperature 97.6, pulse 70, blood pressure 117/61, 93% oxygen saturation on room air. GENERAL: No acute distress, lying in bed comfortably, flat affect. HEART: Regular rate and rhythm. LUNGS: Some faint inspiratory crackles on the right side. No wheezing. No respiratory distress. ABDOMEN: Mild distention. Bowel sounds are present. Soft. Some mild generalized tenderness to palpation, but no guarding or rebound tenderness. EXTREMITIES: Trace pedal edema. LABORATORY STUDIES: Sodium 133, potassium 3.8, BUN 23, creatinine 1.39, glucose 179, total bilirubin 1.8, alkaline phosphatase 141, AST 68, ALT 21, albumin 2.3. AFP is 77,885. COVID PCR negative. ASSESSMENT AND PLAN: 1. Hepatocellular carcinoma, liver lesion measures 8.5 cm. 2. Portal vein thrombus, associated with hepatocellular carcinoma. 3. Cirrhosis with anasarca, new presentation, possibly related to prior alcohol abuse. Agree with Dr. Bryson's opinion that treatment options certainly appear to be limited here. This would likely be an unresectable cancer, and not a great candidate for local therapy either with extensive tumor thrombus. In the custodial, prognosis is grim. Follow up with Oncology for treatment recommendations, but agree that hospice consideration would be appropriate as options are limited. 4. Anasarca. Paracentesis was canceled due to not enough fluid to tap on ultrasound. Lower extremity edema has evidently significantly improved since arrival. He was started on low-dose Aldactone. This should be continued. Consider adding Lasix 20 mg daily on hospital discharge. Please call anytime with questions or concerns. Job ID: [id number]
--- NOTE | 2020-07-15 14:50 | PDOC.HOSPP ---
- Subjective Encounter Date: 07/15/20 Encounter Time: 10:45 Subjective: Patient appears slightly lethargic and somnolent he is quite sleepy this morning. His lower extremity edema quite improved like yesterday. - Objective Vital Signs & Weight: Vital Signs (12 hours) Temp Pulse Resp BP Pulse Ox 07/15/20 11:34 97.5 F L 77 18 124/74 96 07/15/20 09:40 93 L 07/15/20 07:56 97.6 F 70 18 117/61 93 L 07/15/20 06:49 91 18 95 Weight Admit Weight 211 lb 8 oz Weight 211 lb 8 oz I&O: 07/14/20 07/15/20 07/16/20 06:59 06:59 06:59 Intake Total 1200 1300 Output Total 1000 2100 Balance 200 -800 Result Diagrams: 07/13/20 04:49 07/14/20 09:24 Hospitalist ROS - Medication Medications: Active Medications Generic Name Dose Route Start Last Admin Trade Name Freq PRN Reason Stop Dose Admin Albuterol/Ipratropium 3 ml 07/12/20 13:00 07/15/20 14:40 Ipratropium/Albuterol Sulfate 3 Ml Neb NEB 3 ml [id number] CLEMENCIA Administration Calamine/Zinc Oxide 0 ml 07/14/20 21:00 07/15/20 09:58 Calamine/Zinc Oxide 177 Ml Lotion TP 177 ml BID CLEMENCIA Administration Guaifenesin/Dextromethorphan 1 tab 07/12/20 21:00 07/15/20 09:59 Guaifenesin/Dm Er PO 1 tab Q12HR CLEMENCIA Administration Azithromycin 500 mg/ Sodium 250 mls @ 250 mls/hr 07/12/20 05:00 07/15/20 05:43 Chloride IVPB 250 mls Q24HR CLEMENCIA Administration Ceftriaxone Sodium 1 gm/ 100 mls @ 200 mls/hr 07/12/20 05:00 07/15/20 04:13 Sodium Chloride IVPB 100 mls Q24HR CLEMENCIA Administration Midodrine 10 mg 07/14/20 15:00 07/15/20 09:57 Midodrine Hcl 5 Mg Tab PO 10 mg TID CLEMENCIA Administration Nystatin 0 gm 07/14/20 21:00 07/15/20 09:59 Nystatin Powder 15 Gm Bot TOP 1 applic BID CLEMENCIA Administration Octreotide Acetate 200 mcg 07/14/20 14:00 07/15/20 05:43 Octreotide Acetate 100 Mcg/Ml Vial SC 200 mcg Q8HR CLEMENCIA Administration Sodium Chloride 10 ml 07/12/20 21:00 07/15/20 09:58 Flush - Normal Saline 10 Ml Syringe IVF 10 ml Q12HR CLEMENCIA Administration Spironolactone 25 mg 07/15/20 09:00 07/15/20 09:58 Spironolactone 25 Mg Tab PO 25 mg DAILY CLEMENCIA Administration Hospitalist Exam Vitals: Vital Signs (12 hours) Temp Pulse Resp BP Pulse Ox 07/15/20 11:34 97.5 F L 77 18 124/74 96 07/15/20 09:40 93 L 07/15/20 07:56 97.6 F 70 18 117/61 93 L 07/15/20 06:49 91 18 95 Weight Admit Weight 211 lb 8 oz Weight 211 lb 8 oz General - other findings: [place]: PERRL ENT: normocephalic atraumatic Neck: supple Heart: RRR, normal peripheral pulses Respiratory: CTAB, normal chest expansion Gastrointestinal: soft, normal bowel sounds Neurological: cranial nerve grossly intact, no focal deficits Musculoskeletal: generalized weakness Hosp A/P - Plan Patient is a 69 years old gentleman who has significant past medical history of hepatitis C liver cirrhosis, COPD, hypertension, who was transferred from outside facility for worsening generalized swelling/edema. Patient was admitted for decompensated liver cirrhosis, and COPD exacerbation. Decompensation multifactorial with the cirrhosis ascites anasarca and hepatocellular cancer New diagnosis of hepatoma -CT showed 8.5 cm hypodense mass in the right hepatic lobe -Partial intraluminal thrombus in the left main portal vein\- lymphadenopathy\gallbladder wall thickening possibly related to cirrhosis Portal hypertension COPD exacerbation Code(s): J44.1 - CHRONIC OBSTRUCTIVE PULMONARY DISEASE W (ACUTE) EXACERBATION Status: Acute (2) Liver cirrhosis (3) Hepatitis C (4) Hypertension (5) Ascites (6) Portal vein thrombosis - Plan Decompensated liver cirrhosis --Continue IV Lasix, spironolactone. Follow renal function --Status post paracentesis, 2.5 L removed on 07/12/20 Ascites/anasarca --Management as above. May need to rpt paracentesis --Possibly Wednesday COPD with exacerbation --scheduled breathing treatments, mucolytics. Continue empiric antibiotic with Rocephin/azithromycin for possible pneumonia Portal vein thrombosis, nonocclusive --We will change his Lovenox to therapeutic dose Hypertension, stable --Blood pressure stable, on the low side. We will continue with IV diuretic, spironolactone antibiotic. Hold off on resuming his Norvasc for now Tobacco dependent disorder --Counseled DVT prophylaxisLovenox CODE STATUSDNRthis was discussed with patient --CT report with the new diagnosis of hepatoma I discussed with Dr. Garza I will place a consult for oncology opinion It appears that if he continued to proceed with the treatment, he may have to go to a tertiary center for surgical resection of the hepatoma With the several decompensated conditions, he may not be strong candidate for liver transplantation Will continue to discuss with the patient 7th Uncompensated cirrhosis He is started on midodrine as well as octreotide Albumin infusion for 5 days No paracentesis today Medical diuresis Low-dose spironolactone and lactulose as needed Wound care consult for scrotal breakdown 8th Continue with medical treatment as he is improving in his anasarca. -Blood pressure is on the normal side -Lasix spironolactone as well as lactulose as needed Hepatocellular carcinoma with a liver lesion of about 8.5 cm Ascites--- attempt to do another paracentesis failedhe does not have much fluid to remove. Continue with albumin infusion and octreotide Probably can reduce the midodrine dose to twice a day Due to extensive thrombosis he probably need ongoing anticoagulant, for now I will continue with Lovenox. We will also check with hospice as patient is not a strong candidate for any surgical intervention. Consult placed.
--- NOTE | 2020-07-15 18:21 | PRG ---
DATE OF SERVICE: 07/15/2020 SUBJECTIVE: The patient is seen today, seems to be in a very bad mood and very angry. OBJECTIVE: VITAL SIGNS: Noted with the following vital signs; afebrile, temperature 97.6, pulse 80, respiratory rate of 18, O2 saturation of 94%, blood pressure 122/74. HEENT: Unremarkable. CARDIOVASCULAR SYSTEM: First and second heart sounds were heard. RESPIRATORY SYSTEM: Clear to auscultation. DIGESTIVE SYSTEM: Revealed distended abdomen that seems to be improving. EXTREMITIES: Showed improving lower extremity edema. LABORATORY INVESTIGATION: Creatinine down to 1.39, sodium 133. IMPRESSION: 1. Acute on chronic kidney disease in the context of hepatorenal syndrome. 2. End-stage liver disease. 3. Generalized anasarca, improving. PLAN: 1. Begin to deescalate the patient's diuresis. 2. Continue other renal supportive measures. 3. Further management to be dependent on the clinical course. Job ID: [id number]
[2020-07-15 22:55] LABS: #Eosinphils 0.5 thou/uL (0.0-0.7); #Monocytes 0.4 thou/uL (0.11-0.59); #Neutrophils 2.6 thou/uL (1.40-6.50); %Basophils 0.3 % (0.0-1.0); %Eosinophils 11.6 % (0.0-10.0); %Lymphocytes 21.2 % (21.0-51.0); %Monocytes 9.5 % (0.0-10.0); %Neutrophils 57.5 % (42.0-75.0); Mean Corpuscular HGB CONC 36.3 g/dL (32.0-36.0); Mean Corpuscular Hemoglobin 37.2 pg (27.0-31.0); Mean Platelet Volume 6.9 fL (7.4-10.4); Platelet Count 94 thou/uL (130-400); Red Blood Cell (RBC) Count 2.95 mill/uL (4.70-6.10); White Blood Cell (WBC) Count 4.5 thou/uL (4.8-10.8)
[2020-07-15 23:05] LABS: Lactic Acid 2.1 mmol/L (0.5-2.2)
[2020-07-15 23:12] LABS: ALT (SGPT) 22 U/L (8-55); AST (SGOT) 77 U/L (5-34); Albumin 2.7 g/dL (3.4-4.8); Alkaline Phosphatase 116 U/L (40-110); Anion Gap 12 mmol/L (10-20); BUN (Urea Nitrogen) 23 mg/dL (8.4-25.7); Bilirubin, Total 2.7 mg/dL (0.2-1.2); Calc. Creatinine Clearance 84 mL/min (70-130); Calcium 8.3 mg/dL (7.8-10.44); Carbon Dioxide 30 mmol/L (23-31); Chloride 97 mmol/L (98-107); Globulin 4.3 g/dL (2.4-3.5); Glucose 169 mg/dL (80-115); Magnesium 1.6 mg/dL (1.6-2.6); Potassium 3.7 mmol/L (3.5-5.1); Sodium 135 mmol/L (136-145)
--- NOTE | 2020-07-15 23:54 | CT ---
Head CT without contrast 07/15/2020: Comparison: None HISTORY: Altered mental status TECHNIQUE: Axial CT imaging at 2.5 mm intervals from vertex through skull base without contrast. Luis nal and sagittal reformatted imaging obtained FINDINGS: The imaged paranasal sinuses and mastoid air cells are well aerated. There is no displaced calvarial fracture, intracranial hemorrhage, midline shift, or mass effect. IMPRESSION: No intracranial hemorrhage or displaced calvarial fracture.
[2020-07-16] MEDS ORDERED: ALPRAZolam 0.5 MG TAB PO SCH (01:30)
[2020-07-16] MEDS ORDERED: Magnesium 2 GM/50 ML 2 GM in Premix Bag 1 BAG IVPB SCH (02:00)
[2020-07-16] MEDS: Azithromycin 500 MG in Sodium Chloride 0.9% 250 ML 250 ML IVPB SCH (04:39)
[2020-07-16] MEDS: cefTRIAXone\\ROCEPHIN 1 GM in Sodium Chloride 0.9% 100 ML IVPB SCH (04:39)
[2020-07-16] MEDS: Octreotide Acetate 100 MCG/ML VIAL SC SCH ×3 (05:15→22:30)
[2020-07-16 06:07] LABS: #Eosinphils 0.6 thou/uL (0.0-0.7); #Lymphocytes 0.8 thou/uL (1.20-3.40); #Monocytes 0.3 thou/uL (0.11-0.59); #Neutrophils 2.4 thou/uL (1.40-6.50); %Basophils 0.6 % (0.0-1.0); %Eosinophils 13.7 % (0.0-10.0); %Lymphocytes 20.1 % (21.0-51.0); %Monocytes 8.3 % (0.0-10.0); %Neutrophils 57.4 % (42.0-75.0); Hemoglobin 11.1 g/dL (14.0-18.0); Mean Corpuscular HGB CONC 34.8 g/dL (32.0-36.0); Mean Corpuscular Hemoglobin 35.5 pg (27.0-31.0); Platelet Count 89 thou/uL (130-400); RBC Distribution Width 14.7 % (11.5-14.5); Red Blood Cell (RBC) Count 3.11 mill/uL (4.70-6.10); White Blood Cell (WBC) Count 4.2 thou/uL (4.8-10.8)
[2020-07-16 06:25] LABS: Anion Gap 12 mmol/L (10-20); BUN (Urea Nitrogen) 21 mg/dL (8.4-25.7); Calc. Creatinine Clearance 88 mL/min (70-130); Calcium 8.3 mg/dL (7.8-10.44); Carbon Dioxide 28 mmol/L (23-31); Chloride 99 mmol/L (98-107); Glucose 162 mg/dL (80-115); Potassium 3.8 mmol/L (3.5-5.1); Sodium 135 mmol/L (136-145)
[2020-07-16] MEDS: guaiFENesin/DM ER PO SCH ×2 (08:36→20:51)
[2020-07-16] MEDS: Spironolactone 25 MG TAB PO SCH (08:36)
[2020-07-16] MEDS: Midodrine HCl 5 MG TAB PO SCH ×3 (08:37→20:49)
[2020-07-16] MEDS: Calamine/Zinc Oxide 177 ML LOTION TP SCH ×2 (08:39→21:00)
[2020-07-16] MEDS: Nystatin Powder 15 GM BOT TOP SCH ×2 (08:40→20:59)
[2020-07-16] MEDS ORDERED: Furosemide 20 MG TAB PO SCH (09:00)
--- NOTE | 2020-07-16 13:13 | PDOC.HOSPP ---
- Subjective Encounter Date: 07/16/20 Encounter Time: 10:40 Subjective: Patient seen today he appears little lethargic this morning. Alert oriented x1. His lower extremity edema seems to be coming back. Ammonia level was 105. - Objective Vital Signs & Weight: Vital Signs (12 hours) Temp Pulse Resp BP Pulse Ox 07/16/20 10:58 97.7 F 71 20 160/79 H 94 L 07/16/20 08:00 95 07/16/20 07:34 97.6 F 81 18 124/85 95 07/16/20 07:10 70 18 96 Weight Admit Weight 211 lb 8 oz Weight 211 lb 8 oz I&O: 07/15/20 07/16/20 07/17/20 06:59 06:59 06:59 Intake Total 1300 470 Output Total 2100 Balance -800 470 Result Diagrams: 07/16/20 05:54 07/16/20 05:54 Additional Labs: Accuchecks 07/15/20 21:33 POC Glucose 171 H Hospitalist ROS - Medication Medications: Active Medications Generic Name Dose Route Start Last Admin Trade Name Connorq PRN Reason Stop Dose Admin Albuterol/Ipratropium 3 ml 07/12/20 13:00 07/16/20 07:10 Ipratropium/Albuterol Sulfate 3 Ml Neb NEB 3 ml [id number] CLEMENCIA Administration Calamine/Zinc Oxide 0 ml 07/14/20 21:00 07/16/20 08:39 Calamine/Zinc Oxide 177 Ml Lotion TP 177 ml BID CLEMENCIA Administration Guaifenesin/Dextromethorphan 1 tab 07/12/20 21:00 07/16/20 08:36 Guaifenesin/Dm Er PO 1 tab Q12HR CLEMENCIA Administration Azithromycin 500 mg/ Sodium 250 mls @ 250 mls/hr 07/12/20 05:00 07/16/20 04:39 Chloride IVPB 250 mls Q24HR CLEMENCIA Administration Ceftriaxone Sodium 1 gm/ 100 mls @ 200 mls/hr 07/12/20 05:00 07/16/20 04:39 Sodium Chloride IVPB 100 mls Q24HR CLEMENCIA Administration Midodrine 10 mg 07/14/20 15:00 07/16/20 08:37 Midodrine Hcl 5 Mg Tab PO 10 mg TID CLEMENCIA Administration Nystatin 0 gm 07/14/20 21:00 07/16/20 08:40 Nystatin Powder 15 Gm Bot TOP 1 applic BID CLEMENCIA Administration Octreotide Acetate 200 mcg 07/14/20 14:00 07/16/20 05:15 Octreotide Acetate 100 Mcg/Ml Vial SC 200 mcg Q8HR CLEMENCIA Administration Sodium Chloride 10 ml 07/12/20 21:00 07/16/20 08:41 Flush - Normal Saline 10 Ml Syringe IVF 10 ml Q12HR CLEMENCIA Administration Spironolactone 25 mg 07/15/20 09:00 07/16/20 08:36 Spironolactone 25 Mg Tab PO 25 mg DAILY CLEMENCIA Administration Hospitalist Exam Vitals: Vital Signs (12 hours) Temp Pulse Resp BP Pulse Ox 07/16/20 10:58 97.7 F 71 20 160/79 H 94 L 07/16/20 08:00 95 07/16/20 07:34 97.6 F 81 18 124/85 95 07/16/20 07:10 70 18 96 Weight Admit Weight 211 lb 8 oz Weight 211 lb 8 oz General Appearance: awake alert, ill appearing Eye: PERRL ENT: normocephalic atraumatic Neck: supple Heart: RRR Respiratory: CTAB, normal chest expansion Gastrointestinal: soft, normal bowel sounds Extremities: 1+ LE edema Musculoskeletal: generalized weakness Psychiatric: oriented to person Hosp A/P - Plan Patient is a 69 years old gentleman who has significant past medical history of hepatitis C liver cirrhosis, COPD, hypertension, who was transferred from outside facility for worsening generalized swelling/edema. Patient was admitted for decompensated liver cirrhosis, and COPD exacerbation. Decompensation multifactorial with the cirrhosis ascites anasarca and hepatocellular cancer New diagnosis of hepatoma -CT showed 8.5 cm hypodense mass in the right hepatic lobe -Partial intraluminal thrombus in the left main portal vein\- lymphadenopathy\gallbladder wall thickening possibly related to cirrhosis Portal hypertension COPD exacerbation Code(s): J44.1 - CHRONIC OBSTRUCTIVE PULMONARY DISEASE W (ACUTE) EXACERBATION Status: Acute (2) Liver cirrhosis (3) Hepatitis C (4) Hypertension (5) Ascites (6) Portal vein thrombosis - Plan Decompensated liver cirrhosis --Continue IV Lasix, spironolactone. Follow renal function --Status post paracentesis, 2.5 L removed on 07/12/20 Ascites/anasarca --Management as above. May need to rpt paracentesis --Possibly Wednesday COPD with exacerbation --scheduled breathing treatments, mucolytics. Continue empiric antibiotic with Rocephin/azithromycin for possible pneumonia Portal vein thrombosis, nonocclusive --We will change his Lovenox to therapeutic dose Hypertension, stable --Blood pressure stable, on the low side. We will continue with IV diuretic, spironolactone antibiotic. Hold off on resuming his Norvasc for now Tobacco dependent disorder --Counseled DVT prophylaxisLovenox CODE STATUSDNRthis was discussed with patient --CT report with the new diagnosis of hepatoma I discussed with Dr. Garza I will place a consult for oncology opinion It appears that if he continued to proceed with the treatment, he may have to go to a tertiary center for surgical resection of the hepatoma With the several decompensated conditions, he may not be strong candidate for liver transplantation Will continue to discuss with the patient 7th Uncompensated cirrhosis He is started on midodrine as well as octreotide Albumin infusion for 5 days No paracentesis today Medical diuresis Low-dose spironolactone and lactulose as needed Wound care consult for scrotal breakdown 8th Continue with medical treatment as he is improving in his anasarca. -Blood pressure is on the normal side -Lasix spironolactone as well as lactulose as needed Hepatocellular carcinoma with a liver lesion of about 8.5 cm Ascites--- attempt to do another paracentesis failedhe does not have much fluid to remove. Continue with albumin infusion and octreotide Probably can reduce the midodrine dose to twice a day Due to extensive thrombosis he probably need ongoing anticoagulant, for now I will continue with Lovenox. We will also check with hospice as patient is not a strong candidate for any surgical intervention. Consult placed. 9th -Patient area appears no family support -Lasix dose increased to 40 mg daily along with spironolactone. -Due to his confusion will start him on aggressive bowel regimen with lactulose Plan to send him to a care home facility. At the time of discharge will reduce the midodrine dose add propanolol when his portal hypertension.
--- NOTE | 2020-07-16 18:37 | PRG ---
DATE OF SERVICE: 07/16/2020 OBJECTIVE: VITAL SIGNS: The patient is noted with the following vital signs; afebrile, temperature 97.5, pulse 65, respiratory rate of 18, O2 saturations of 95%, blood pressure 122/63. HEENT: Unremarkable. CARDIOVASCULAR SYSTEM: First and second heart sounds were heard. RESPIRATORY SYSTEM: Clear to auscultation. DIGESTIVE SYSTEM: Revealed a benign abdomen with positive bowel sounds. EXTREMITIES: No peripheral edema. SKIN: No new gross rash. LYMPHATICS: No peripheral lymphadenopathy. LABORATORY INVESTIGATIONS: Showed a white count of 4.2, hemoglobin 11.1. Chemistry showed a creatinine of 1.11, sodium 135. IMPRESSION: 1. Anasarca. 2. Hepatorenal syndrome, which seems to be much improved. 3. End-stage liver disease. PLAN: 1. The patient seems to be tolerating current treatment. We will continue with current management. 2. Further management to be dependent on the clinical course. Job ID: [id number]
[2020-07-16] MEDS: ALPRAZolam 0.5 MG TAB PO SCH (20:50)
[2020-07-17] MEDS: cefTRIAXone\\ROCEPHIN 1 GM in Sodium Chloride 0.9% 100 ML IVPB SCH (04:30)
[2020-07-17] MEDS: Octreotide Acetate 100 MCG/ML VIAL SC SCH ×2 (05:05→14:40)
[2020-07-17 06:28] LABS: #Eosinphils 0.8 thou/uL (0.0-0.7); #Lymphocytes 1.2 thou/uL (1.20-3.40); #Monocytes 0.4 thou/uL (0.11-0.59); #Neutrophils 3.5 thou/uL (1.40-6.50); %Basophils 0.7 % (0.0-1.0); %Eosinophils 13.6 % (0.0-10.0); %Lymphocytes 19.6 % (21.0-51.0); %Monocytes 7.2 % (0.0-10.0); %Neutrophils 58.9 % (42.0-75.0); Hemoglobin 10.7 g/dL (14.0-18.0); Mean Corpuscular Hemoglobin 35.9 pg (27.0-31.0); Mean Platelet Volume 7.4 fL (7.4-10.4); Platelet Count 86 thou/uL (130-400); RBC Distribution Width 14.4 % (11.5-14.5); Red Blood Cell (RBC) Count 2.98 mill/uL (4.70-6.10)
[2020-07-17 06:51] LABS: Anion Gap 9 mmol/L (10-20); BUN (Urea Nitrogen) 19 mg/dL (8.4-25.7); Calc. Creatinine Clearance 88 mL/min (70-130); Calcium 8.1 mg/dL (7.8-10.44); Carbon Dioxide 31 mmol/L (23-31); Chloride 100 mmol/L (98-107); Glucose 130 mg/dL (80-115); Potassium 3.5 mmol/L (3.5-5.1); Sodium 136 mmol/L (136-145)
--- NOTE | 2020-07-17 07:13 | PRG ---
DATE OF SERVICE: 07/16/2020 SUBJECTIVE: Mr. Blount is resting comfortably in bed. He is in no distress. He denies pain. Brain CT last night showed no evidence of intracranial fractures. He is aware of his diagnosis of hepatoma with vessel invasion in the right and left portal veins. Palliative Care is seeing the patient. The nurse informed me there are plans for hospice at long term placement and I asked him about this. He is not wanting to talk about the diagnosis or treatment options. PHYSICAL EXAMINATION: VITAL SIGNS: Temperature 97, pulse 69, blood pressure 132/68. GENERAL: He is resting comfortably in bed. He is not very talkative. He is in no distress. ABDOMEN: He has fluid wave in the abdomen. Enlarged liver. EXTREMITIES: Anasarca. LABORATORY DATA: White count 4.2, hemoglobin 11.1, MCV 102, platelet 89,000. INR 1.6 on the 7th. Sodium 135, potassium 3.8, BUN and creatinine are 21 and 1.1. On the , his bilirubin was 2.7, AST was 77, alkaline phosphatase 116, albumin of 2.7, protein of 7, alpha fetoprotein was 77,885, diagnosed with hepatoma. ASSESSMENT: 1. 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 He is not a transplant candidate. The only therapy would be transfer to a tertiary care center for some radioactive therapy to possibly open up his portal vessels. The patient does not seem interested in this, does not want to talk about this option. It seems that plans have been made for palliative care. 2. Renal insufficiency, stable. 3. Decompensation of liver disease related to hepatoma. 4. Anasarca. RECOMMENDATIONS: Palliative care would be appropriate if the patient does not want to embark on therapy. Palliation with low-dose Aldactone and Lasix at 100 mg and 40 mg daily. A low-sodium diet will be reasonable to help try to control ascites and fluid. Agree with wound care for treating skin breakdown in the scrotal area secondary to anasarca. At this time, we will follow from a distance. If the patient change his mind, we could help pursue transfer to a tertiary care facility to see if other interventions or options at this point in time. Job ID: [id number]
[2020-07-17] MEDS: Azithromycin 250 MG TAB PO SCH (09:20)
[2020-07-17] MEDS: guaiFENesin/DM ER PO SCH ×2 (09:21→21:11)
[2020-07-17] MEDS: Midodrine HCl 5 MG TAB PO SCH (09:21)
[2020-07-17] MEDS: Furosemide 40 MG TAB PO SCH (09:21)
[2020-07-17] MEDS: Calamine/Zinc Oxide 177 ML LOTION TP SCH ×2 (09:22→21:13)
[2020-07-17] MEDS: Nystatin Powder 15 GM BOT TOP SCH ×2 (09:22→21:12)
[2020-07-17] MEDS: Spironolactone 25 MG TAB PO SCH (09:22)
--- NOTE | 2020-07-17 14:21 | PDOC.HOSPP ---
- Subjective Encounter Date: 07/17/20 Encounter Time: 09:55 Subjective: Patient appears little confused today he is oriented to himself day he knows this is a hospital but he could not tell what the name of the hospital and he could not say what day it is today otherwise he is nontoxic-appearing - Objective Vital Signs & Weight: Vital Signs (12 hours) Temp Pulse Resp BP Pulse Ox 07/17/20 13:24 70 20 07/17/20 09:58 92 L 07/17/20 08:00 92 L 07/17/20 07:32 98.1 F 64 17 135/72 91 L 07/17/20 07:10 71 20 94 L Weight Admit Weight 211 lb 8 oz Weight 211 lb 8 oz I&O: 07/16/20 07/17/20 07/18/20 06:59 06:59 06:59 Intake Total 470 270 Output Total 450 Balance 470 -180 Result Diagrams: 07/17/20 05:44 07/17/20 05:44 Hospitalist ROS - Medication Medications: Active Medications Generic Name Dose Route Start Last Admin Trade Name Freq PRN Reason Stop Dose Admin Albuterol/Ipratropium 3 ml 07/12/20 13:00 07/17/20 13:24 Ipratropium/Albuterol Sulfate 3 Ml Neb NEB 3 ml [id number] CLEMENCIA Administration Alprazolam 0.5 mg 07/16/20 21:00 07/16/20 20:50 Alprazolam 0.5 Mg Tab PO 0.5 mg HS CLEMENCIA Administration Azithromycin 500 mg 07/17/20 09:00 07/17/20 09:20 Azithromycin 250 Mg Tab PO 500 mg DAILY CLEMENCIA Administration Calamine/Zinc Oxide 0 ml 07/14/20 21:00 07/17/20 09:22 Calamine/Zinc Oxide 177 Ml Lotion TP 177 ml BID CLEMENCIA Administration Furosemide 40 mg 07/17/20 09:00 07/17/20 09:21 Furosemide 40 Mg Tab PO 40 mg DAILY CLEMENCIA Administration Guaifenesin/Dextromethorphan 1 tab 07/12/20 21:00 07/17/20 09:21 Guaifenesin/Dm Er PO 1 tab Q12HR CLEMENCIA Administration Ceftriaxone Sodium 1 gm/ 100 mls @ 200 mls/hr 07/12/20 05:00 07/17/20 04:30 Sodium Chloride IVPB 100 mls Q24HR CLEMENCIA Administration Lactulose 20 gm 07/17/20 09:00 07/17/20 09:20 Lactulose 20 Gm/30 Ml Udcup PO 20 gm TID CLEMENCIA Administration Midodrine 10 mg 07/14/20 15:00 07/17/20 09:21 Midodrine Hcl 5 Mg Tab PO 10 mg TID CLEMENCIA Administration Nystatin 0 gm 07/14/20 21:00 07/17/20 09:22 Nystatin Powder 15 Gm Bot TOP 1 applic BID CLEMENCIA Administration Octreotide Acetate 200 mcg 07/14/20 14:00 07/17/20 05:05 Octreotide Acetate 100 Mcg/Ml Vial SC 200 mcg Q8HR CLEMENCIA Administration Sodium Chloride 10 ml 07/12/20 21:00 07/17/20 09:23 Flush - Normal Saline 10 Ml Syringe IVF 10 ml Q12HR CLEMENCIA Administration Spironolactone 25 mg 07/15/20 09:00 07/17/20 09:22 Spironolactone 25 Mg Tab PO 25 mg DAILY CLEMENCIA Administration Hospitalist Exam Vitals: Vital Signs (12 hours) Temp Pulse Resp BP Pulse Ox 07/17/20 13:24 70 20 07/17/20 09:58 92 L 07/17/20 08:00 92 L 07/17/20 07:32 98.1 F 64 17 135/72 91 L 07/17/20 07:10 71 20 94 L Weight Admit Weight 211 lb 8 oz Weight 211 lb 8 oz General Appearance: NAD, ill appearing Eye: PERRL ENT: normocephalic atraumatic Neck: supple Heart: RRR Respiratory: CTAB, normal chest expansion Gastrointestinal: normal bowel sounds, distended Extremities: 1+ LE edema Psychiatric: oriented to person, somnolent, lethargic Hosp A/P - Plan Patient is a 69 years old gentleman who has significant past medical history of hepatitis C liver cirrhosis, COPD, hypertension, who was transferred from outside facility for worsening generalized swelling/edema. Patient was admitted for decompensated liver cirrhosis, and COPD exacerbation. Decompensation multifactorial with the cirrhosis ascites anasarca and hepatocellular cancer New diagnosis of hepatoma -CT showed 8.5 cm hypodense mass in the right hepatic lobe -Partial intraluminal thrombus in the left main portal vein\- lymphadenopathy\gallbladder wall thickening possibly related to cirrhosis Portal hypertension COPD exacerbation Code(s): J44.1 - CHRONIC OBSTRUCTIVE PULMONARY DISEASE W (ACUTE) EXACERBATION Status: Acute (2) Liver cirrhosis (3) Hepatitis C (4) Hypertension (5) Ascites (6) Portal vein thrombosis - Plan Decompensated liver cirrhosis --Continue IV Lasix, spironolactone. Follow renal function --Status post paracentesis, 2.5 L removed on 07/12/20 Ascites/anasarca --Management as above. May need to rpt paracentesis --Possibly Wednesday COPD with exacerbation --scheduled breathing treatments, mucolytics. Continue empiric antibiotic with Rocephin/azithromycin for possible pneumonia Portal vein thrombosis, nonocclusive --We will change his Lovenox to therapeutic dose Hypertension, stable --Blood pressure stable, on the low side. We will continue with IV diuretic, spironolactone antibiotic. Hold off on resuming his Norvasc for now Tobacco dependent disorder --Counseled DVT prophylaxisLovenox CODE STATUSDNRthis was discussed with patient --CT report with the new diagnosis of hepatoma I discussed with Dr. Garza I will place a consult for oncology opinion It appears that if he continued to proceed with the treatment, he may have to go to a tertiary center for surgical resection of the hepatoma With the several decompensated conditions, he may not be strong candidate for liver transplantation Will continue to discuss with the patient 7th Uncompensated cirrhosis He is started on midodrine as well as octreotide Albumin infusion for 5 days No paracentesis today Medical diuresis Low-dose spironolactone and lactulose as needed Wound care consult for scrotal breakdown 8th Continue with medical treatment as he is improving in his anasarca. -Blood pressure is on the normal side -Lasix spironolactone as well as lactulose as needed Hepatocellular carcinoma with a liver lesion of about 8.5 cm Ascites--- attempt to do another paracentesis failedhe does not have much fluid to remove. Continue with albumin infusion and octreotide Probably can reduce the midodrine dose to twice a day Due to extensive thrombosis he probably need ongoing anticoagulant, for now I will continue with Lovenox. We will also check with hospice as patient is not a strong candidate for any surgical intervention. Consult placed. 9th -Patient area appears no family support -Lasix dose increased to 40 mg daily along with spironolactone. -Due to his confusion will start him on aggressive bowel regimen with lactulose Plan to send him to a halfway facility. At the time of discharge will reduce the midodrine dose add propanolol when his portal hypertension. 10th Uncompensated cirrhosis and hepatocellular carcinoma and portal vein thrombus Patient's condition is declining -I do not think he is a strong candidate at least at this time to look for any aggressive management of hepatocellular carcinoma. Immediate goal is to stabilize him and hopefully his mentation will be back to his baseline; initially during the couple of days after admission he was AOX4 and understood what is going on with his health. But this last 2 days, he became quite confused.--- Continue with lactulose rifaximin spironolactone as well as Lasix [facility] facility placement. I will start him back on Lovenox for DVT prophylaxis
--- NOTE | 2020-07-17 14:38 | PDOC.BPN ---
- Brief Progress Note Will stop the midodrine and octreotide, increased spironolactone added rifaximin Based on the faster clinical digression, hospice eval is not inappropritate. Will send him to [facility].
[2020-07-17] MEDS ORDERED: Fleet Enema 133 ML BOT PR SCH (17:45)
--- NOTE | 2020-07-17 17:57 | RAD ---
KUB: 07/17/2020 HISTORY: Severe constipation FINDINGS: Rounded masslike opacity noted within the right lung base with adjacent right pleural densi ty/thickening/fluid, better assessed on recent CT performed 07/13/2020. Supine imaging limits assessment for bowel obstruction and free intraperitoneal air. There are scattered areas of stool see n within the colon. No evidence for a high-grade small bowel obstruction. IMPRESSION: KUB as detailed above.
--- NOTE | 2020-07-17 18:14 | PRG ---
DATE OF SERVICE: SUBJECTIVE: The patient noted with the following vital signs. OBJECTIVE: VITAL SIGNS: Afebrile, temperature 98.1, pulse 64, respiratory rate of 17, O2 saturation 92%, blood pressure 135/72. HEENT: Unremarkable. CARDIOVASCULAR SYSTEM: First and second heart sounds were heard. RESPIRATORY SYSTEM: Clear to auscultation. DIGESTIVE SYSTEM: Revealed obese abdomen. EXTREMITIES: Without peripheral edema. LABORATORY INVESTIGATION: Showed a hemoglobin of 10.7. Chemistry showed a creatinine down to 1.1. Ammonia of 104. IMPRESSION: 1. End-stage liver disease. 2. Hepatorenal syndrome. 3. Hyperammonemia. PLAN: 1. Continue current renal supportive measures. 2. Further management to be dependent on the clinical course. Job ID: [id number]
[2020-07-17 20:03] VITALS: TEMP 97.6
[2020-07-17] MEDS ORDERED: Enoxaparin Sodium 40 MG/0.4 ML SYRINGE SC SCH (21:00)
[2020-07-17] MEDS: ALPRAZolam 0.5 MG TAB PO SCH (21:11)
[2020-07-17] MEDS: Rifaximin 550 MG TAB PO SCH (21:11)
[2020-07-18 06:26] LABS: #Eosinphils 0.7 thou/uL (0.0-0.7); #Lymphocytes 0.8 thou/uL (1.20-3.40); #Monocytes 0.5 thou/uL (0.11-0.59); #Neutrophils 2.8 thou/uL (1.40-6.50); %Basophils 0.4 % (0.0-1.0); %Eosinophils 14.3 % (0.0-10.0); %Lymphocytes 17.3 % (21.0-51.0); %Monocytes 9.5 % (0.0-10.0); %Neutrophils 58.5 % (42.0-75.0); Hemoglobin 11.3 g/dL (14.0-18.0); Mean Corpuscular HGB CONC 35.9 g/dL (32.0-36.0); Mean Corpuscular Hemoglobin 36.6 pg (27.0-31.0); Mean Platelet Volume 7.6 fL (7.4-10.4); Platelet Count 75 thou/uL (130-400); RBC Distribution Width 14.7 % (11.5-14.5); Red Blood Cell (RBC) Count 3.08 mill/uL (4.70-6.10); White Blood Cell (WBC) Count 4.8 thou/uL (4.8-10.8)
[2020-07-18 06:39] LABS: Anion Gap 16 mmol/L (10-20); BUN (Urea Nitrogen) 20 mg/dL (8.4-25.7); Calc. Creatinine Clearance 84 mL/min (70-130); Calcium 8.3 mg/dL (7.8-10.44); Carbon Dioxide 25 mmol/L (23-31); Chloride 99 mmol/L (98-107); Glucose 148 mg/dL (80-115); Potassium 3.5 mmol/L (3.5-5.1); Sodium 136 mmol/L (136-145)
[2020-07-18 08:00] VITALS: BP 137/72
[2020-07-18] MEDS: Rifaximin 550 MG TAB PO SCH (08:22)
[2020-07-18] MEDS: Azithromycin 250 MG TAB PO SCH (08:23)
[2020-07-18] MEDS: Furosemide 40 MG TAB PO SCH (08:24)
[2020-07-18] MEDS: guaiFENesin/DM ER PO SCH (08:24)
[2020-07-18] MEDS: Nystatin Powder 15 GM BOT TOP SCH (08:25)
[2020-07-18] MEDS: Calamine/Zinc Oxide 177 ML LOTION TP SCH (08:25)
[2020-07-18] MEDS ORDERED: Spironolactone 25 MG TAB PO SCH (09:00)
[2020-07-18] MEDS ORDERED: Midodrine HCl 5 MG TAB PO SCH (09:00)
[2020-07-18] MEDS ORDERED: Enoxaparin Sodium 40 MG/0.4 ML SYRINGE SC SCH (09:00)
--- NOTE | 2020-07-18 14:03 | PDOC.DS.DS ---
Provider Date of Admission: 07/11/20 23:25 Admitting Provider: Bry Lawson MD Primary Care Physician: Sandra Horvath MD Course Hospital Course: 69 years old gentleman who has significant past medical history of hepatitis C liver cirrhosis, COPD, hypertension, who was transferred from outside facility for worsening generalized swelling/edema. Patient was admitted for decompensated liver cirrhosis, and COPD exacerbation. Decompensation multifactorial with the cirrhosis ascites anasarca and hepatocellular cancer New diagnosis of hepatoma -CT showed 8.5 cm hypodense mass in the right hepatic lobe -Partial intraluminal thrombus in the left main portal vein\- lymphadenopathy\gallbladder wall thickening possibly related to cirrhosis Portal hypertension COPD exacerbation Code(s): J44.1 - CHRONIC OBSTRUCTIVE PULMONARY DISEASE W (ACUTE) EXACERBATION Status: Acute (2) Liver cirrhosis (3) Hepatitis C Hepatorenal syndrome (4) Hypertension (5) Ascites (6) Portal vein thrombosis - Decompensated liver cirrhosis --Continue IV Lasix, spironolactone. Follow renal function --Status post paracentesis, 2.5 L removed on 07/12/20 -After that attempt to remove the fluid is not successful as radiologist did not find any appreciable ascites that requires further paracentesis. Patient received a 5-day course of albumin infusion along with the midodrine as well as octreotide. His anasarca resolved with IV diuresis. Patient is discharged with appropriate medications for cirrhosis including Lasix spironolactone lactulose along with the rifaximin. COPD with exacerbation --scheduled breathing treatments, mucolytics. Continue empiric antibiotic with Rocephin/azithromycin for possible pneumonia Portal vein thrombosis, nonocclusive --He got few doses of therapeutic Lovenox as inpatient -When the patient has an inherent nitro coagulopathy due to cirrhosis with hepatocellular carcinoma he might not benefit with full dose anticoagulation. I discussed the possibility for anticoagulation and it was not recommended by the GI. Hypertension, stable --Blood pressure stable, on the low side. We will continue with IV diuretic, spironolactone antibiotic. Hold off on resuming his Norvasc for now Tobacco dependent disorder --Counseled He is quite anxious to go to custodial facility. he lived before in the nursing facility. Due to his faster decline in his health condition he may not be a strong candidate at this time to discuss any further treatment for hepatocellular carcinoma. His mentation though clear today I expect this to be quite labile given overall prognosis with his worsening ascites cirrhosis and hepatocellular carcinoma. Patient will be transferred to the custodial facility today. Discharge time over 30 min. Resuscitation Status: 07/12/20 01:19 Resuscitation Status Routine Resuscitation Status: DNAR: NO Resuscitation Discussed with: Patient Lab Results: 07/18/20 05:58 07/18/20 05:58 Abnormal Lab Results - Last 48 hrs 07/16/20 14:27: Ammonia 104 H 07/17/20 05:44: Anion Gap 9 L 07/17/20 05:44: RBC 2.98 L, Hgb 10.7 L, Hct 30.6 L, MCV 103.0 H, MCH 35.9 H, Plt Count 86 L, Lymphocytes % 19.6 L, Eosinophils % 13.6 H, Eosinophils # 0.8 H 07/18/20 05:58: RBC 3.08 L, Hgb 11.3 L, Hct 31.4 L, MCV 102.0 H, MCH 36.6 H, RDW 14.7 H, Plt Count 75 L, Lymphocytes % 17.3 L, Eosinophils % 14.3 H, Lymphocytes # 0.8 L Vitals: Vital Signs (12 hours) Temp Pulse Resp BP Pulse Ox 07/18/20 08:00 92 L 07/18/20 07:59 97.6 F 62 20 137/72 92 L 07/18/20 06:47 62 16 94 L Weight Admit Weight 211 lb 8 oz Weight 211 lb 8 oz Physical Exam: The patient was seen and examined on the day of discharge. Patient is more oriented at this morning. He is quite anxious to go to custodial facility. The he lived before in the nursing facility. Due to his foster decline in his health condition he may not be a strong candidate at this time to discuss any further regarding the treatment for hepatocellular carcinoma. His mentation though clear today I expect this to be quite labile given overall prognosis with his worsening ascites cirrhosis and hepatocellular carcinoma. Patient will be transferred to the custodial facility today. Plan Prescriptions: Spironolactone [Aldactone] 50 mg PO DAILY 30 Days #30 tab Lactulose 20 gm PO BID 30 Days #60 udcup Furosemide [Lasix] 40 mg PO DAILY 30 Days #30 mg guaiFENesin/DM ER [Mucinex DM] 1 tab PO Q12HR 30 Days #60 tab Rifaximin [Xifaxan] 550 mg PO BID 30 Days #60 tablet Home Medications: Medication Instructions Recorded Confirmed Type Amlodipine Besylate [amLODIPine 10 mg PO DAILY 07/12/20 07/12/20 History Besylate] Furosemide [Lasix] 40 mg PO DAILY 30 Days #30 mg 07/18/20 Rx Lactulose 20 gm PO BID 30 Days #60 udcup 07/18/20 Rx Rifaximin [Xifaxan] 550 mg PO BID 30 Days #60 tablet 07/18/20 Rx Spironolactone [Aldactone] 50 mg PO DAILY 30 Days #30 tab 07/18/20 Rx guaiFENesin/DM ER [Mucinex DM] 1 tab PO Q12HR 30 Days #60 tab 07/18/20 Rx Allergies: No Known Drug Allergies Allergy (Verified 07/12/20 01:01) PER ER NOTES Discharge Instructions:: Follow up with Primary Care Physician in 1 week Activity:: Activity as Tolerated Nourishment:: Renal Diet Referrals: Sandra Horvath MD [Primary Care Provider] - 7 Days Disposition: CUSTODIAL FACILITY Quality CORE MEASURES:: N/A
--- NOTE | 2020-07-18 15:55 | PRG ---
DATE OF SERVICE: 07/18/2020 OBJECTIVE: VITAL SIGNS: The patient is noted with the following vital signs; afebrile, temperature 97.6, pulse 62, respiratory rate 20, O2 saturation 92%, and blood pressure 137/72. HEENT: Unremarkable. CARDIOVASCULAR SYSTEM: First and second heart sounds were heard. RESPIRATORY SYSTEM: Clear to auscultation. DIGESTIVE SYSTEM: Revealed slightly distended abdomen. EXTREMITIES: No peripheral edema. SKIN: No new gross rash. LYMPHATICS: No peripheral lymphadenopathy. IMPRESSION: 1. Hepatorenal syndrome in the context of end-stage liver disease. 2. End-stage liver disease. 3. Liver carcinoma. PLAN: Continue current renal supportive measures. Job ID: [id number]
== END 2020-07-18 16:35 | DRG 432 ==
LOC: T4-B 23:25
PROVIDERS: ADMIT Student in an Organized Health Care Education/Training Program; ATTEND Internal Medicine
PROC: 0W9G3ZZ Drainage of Peritoneal Cavity, Percutaneous Approach (ICD-10-PCS; principal; 2020-07-12)
DX: K70.31 Alcoholic cirrhosis of liver with ascites (principal); K76.7 Hepatorenal syndrome; I81 Portal vein thrombosis; Z20.822 Contact with and (suspected) exposure to COVID-19; Z66 Do not resuscitate; J18.9 Pneumonia, unspecified organism; C22.0 Liver cell carcinoma; J44.1 Chronic obstructive pulmonary disease with (acute) exacerbation; J44.0 Chronic obstructive pulmonary disease with (acute) lower respiratory infection; K76.6 Portal hypertension; N17.9 Acute kidney failure, unspecified; B19.20 Unspecified viral hepatitis C without hepatic coma; N18.9 Chronic kidney disease, unspecified; I12.9 Hypertensive chronic kidney disease with stage 1 through stage 4 chronic kidney disease, or unspecified chronic kidney disease; F17.210 Nicotine dependence, cigarettes, uncomplicated; N50.89 Other specified disorders of the male genital organs; F10.10 Alcohol abuse, uncomplicated; K72.90 Hepatic failure, unspecified without coma; Z28.21 Immunization not carried out because of patient refusal; Z79.899 Other long term (current) drug therapy
CPT/HCPCS: 36415; 36416; 49083; 70450; 71045; 71046; 74018; 74177; 76705; 80048; 80053; 82105; 82140; 83605; 83735; 83880; 85025; 85610; 86140; 87635; J0456; J0696; J1650; J1940; J2354; J2920; J2930; J3475; J3490; J7050; J7620; P9047; Q9967; U0003; U0005